=== PATIENT | female | born 1965 | race African-American/Black ===

== ENCOUNTER 2025-09-17 03:52 | Emergency (ER) | payer SELFPAY ==
[~2025-09-17] VITALS: Ht 170.2 cm; Wt 73.0 kg
[2025-09-17 03:55] VITALS: BP 120/80; PULSE 80; RESP 16; TEMP 98.7; O2SAT 98
== END 2025-09-17 04:48 | disposition home or self-care (01) ==
LOC: ER 03:52
DX: Z00.00 Encounter for general adult medical examination without abnormal findings (principal); Z91.010 Allergy to peanuts
CPT/HCPCS: 99283